=== PATIENT | male | born 1990 | race Caucasian/White ===

== ENCOUNTER 2020-03-20 10:49 | Emergency (ER) | payer OTHER ==
[~2020-03-20] VITALS: Ht 175.3 cm; Wt 73.6 kg
[2020-03-20] MEDS ORDERED: PERCOCET 5MG/325MG TAB PO ONE (11:30)
--- NOTE | 2020-03-20 12:22 | REP ---
RIGHT WRIST SERIES: Four views. HISTORY: Right hand deformity and pain after hitting a door. FINDINGS: Four views of the right wrist demonstrate soft tissue swelling associated with a comminuted intra-articular fracture of the proximal end of the 5th metacarpal at the 5th MCP joint. On lateral views there is moderate apex dorsal angulation and impaction. No other fractures seen. IMPRESSION: Intra-articular, comminuted, impacted, and angulated fracture of the proximal end of the 5th metacarpal. Electronically Signed by Salomon Carpenter MD 03/20/2020 12:57 P
--- NOTE | 2020-03-20 12:23 | REP ---
RIGHT HAND SERIES: Four views. HISTORY: Pain and swelling after hitting a door. FINDINGS: Four views right hand demonstrate a comminuted impacted and angulated fracture of the proximal end of the 5th metacarpal with associated soft-tissue swelling. No other fractures seen. Overall mineralization pattern is normal. No evidence of foreign body. IMPRESSION: Comminuted and impacted angulated fracture at the base of the 5th metacarpal at the 5th LONGTERM joint. Electronically Signed by Salomon Carpenter MD 03/20/2020 12:57 P
[2020-03-20] MEDS ORDERED: IBUP80TA PO (13:51)
[2020-03-20] MEDS ORDERED: NORC1TAB7 PO (13:51)
[2020-03-20 13:59] VITALS: BP 129/70
--- NOTE | 2020-03-20 14:27 | REP ---
CT RIGHT HAND: CT right hand performed in the axial plane. Sagittal and coronal reconstruction images are performed. Comparison made with plain films performed earlier today. Again noted is a comminuted intra-articular fracture at the base of the 5th metacarpal. There is mild distraction of fracture fragments. The more distal shaft of the 5th metacarpal adjacent to the site of the fracture is mildly displaced posteriorly. The remaining osseous structures demonstrate no evidence of fracture or dislocation. There is mild soft tissue edema. Electronically Signed by Hayden Flores MD 03/20/2020 03:40 P
== END 2020-03-20 14:01 | disposition home or self-care (01) ==
LOC: M ED 10:49
DX: S62.316A Displaced fracture of base of fifth metacarpal bone, right hand, initial encounter for closed fracture (principal); W22.09XA Striking against other stationary object, initial encounter; Y92.9 Unspecified place or not applicable; Y93.01 Activity, walking, marching and hiking; Y99.9 Unspecified external cause status